=== PATIENT | male | born 2000 | race Caucasian/White ===

== ENCOUNTER 2023-06-09 15:28 | Outpatient (REF) | payer OTHER, SELFPAY ==
[2023-06-09 15:55] LABS: MANUAL DIFF FLAG NO
[2023-06-09 16:06] LABS: Basophils Absolute Auto 0.1 X10*3/uL (0.0-0.2); Basophils Percent Auto 0.7 % (0-2); Eosinophils Absolute Auto 0.1 X10*3/uL (0.0-0.4); Eosinophils Percent Auto 1.2 % (0-4); Hematocrit 45.9 % (42.0-52.0); Hemoglobin 15.5 g/dl (14.0-18.0); Imm Gran Abs Auto 0.04 X10*3/uL (0.00-0.03); Imm Gran Pct Auto 0.4 % (0.0-0.4); Lymphocytes Percent Auto 22.2 % (20-40); Mean Corpuscular HGB Conc 33.8 g/dl (31.0-36.0); Mean Corpuscular Hemoglobin 30.2 pg (27.0-33.0); Mean Corpuscular Volume 89.5 fL (80.0-98.0); Mean Platelet Volume 9.2 fL (9.4-12.4); Monocytes Absolute Auto 0.7 X10*3/uL (0.1-1.2); Monocytes Percent Auto 7.3 % (2-11); Neutrophils Absolute Auto 6.1 x10*3/uL (2.0-8.3); Neutrophils Percent Auto 68.2 % (45-73); Platelet Count 368 X10*3/uL (160-400); Red Blood Count 5.13 X10*6/uL (4.60-5.80); Red Cell Distribution Width 11.9 % (11.0-16.0); White Blood Count 8.9 X10*3/uL (4.8-10.8)
[2023-06-09 17:17] LABS: Anion Gap 13 (12-20); Blood Urea Nitrogen 12 mg/dL (9-16); Calcium 9.8 mg/dL (8.4-10.2); Carbon Dioxide 27 mmol/L (22-29); Chloride 106 mmol/L (96-108); Cholesterol 119 mg/dL (<200); Estimated Glomerular Filt Rate > 60; Glucose Random 88 mg/dL (60-115); HDL Cholesterol 52 mg/dL (>40); LDL Cholesterol Calculated 58 mg/dL (<100); Potassium 3.8 mmol/L (3.3-5.1); Sodium 142 mmol/L (135-145); Triglycerides 47 mg/dL (<150)
== END 2023-06-09 15:29 | disposition home or self-care (01) ==
LOC: HO.LAB 15:28
PROVIDERS: PCP Internal Medicine; Visit Provider Internal Medicine
DX: Z13.6 Encounter for screening for cardiovascular disorders (principal); F90.9 Attention-deficit hyperactivity disorder, unspecified type; L70.9 Acne, unspecified; J30.1 Allergic rhinitis due to pollen
CPT/HCPCS: 36415; 80048; 80061; 85025

== ENCOUNTER 2023-10-04 12:18 | Outpatient (REF) | payer OTHER, SELFPAY ==
[2023-10-04 12:38] LABS: MANUAL DIFF FLAG NO
[2023-10-04 13:35] LABS: Basophils Absolute Auto 0.1 X10*3/uL (0.0-0.2); Basophils Percent Auto 0.7 % (0-2); Eosinophils Absolute Auto 0.1 X10*3/uL (0.0-0.4); Eosinophils Percent Auto 0.8 % (0-4); Hematocrit 42.3 % (42.0-52.0); Hemoglobin 14.3 g/dl (14.0-18.0); Imm Gran Abs Auto 0.03 X10*3/uL (0.00-0.03); Imm Gran Pct Auto 0.4 % (0.0-0.4); Lymphocytes Absolute Auto 1.7 X10*3/uL (1.2-4.9); Lymphocytes Percent Auto 23.4 % (20-40); Mean Corpuscular HGB Conc 33.8 g/dl (31.0-36.0); Mean Corpuscular Hemoglobin 30.2 pg (27.0-33.0); Mean Corpuscular Volume 89.4 fL (80.0-98.0); Mean Platelet Volume 9.3 fL (9.4-12.4); Monocytes Absolute Auto 0.6 X10*3/uL (0.1-1.2); Monocytes Percent Auto 8.6 % (2-11); Neutrophils Absolute Auto 4.8 x10*3/uL (2.0-8.3); Neutrophils Percent Auto 66.1 % (45-73); Platelet Count 383 X10*3/uL (160-400); Red Blood Count 4.73 X10*6/uL (4.60-5.80); Red Cell Distribution Width 11.9 % (11.0-16.0); White Blood Count 7.3 X10*3/uL (4.8-10.8)
[2023-10-04 14:10] LABS: Alanine Aminotransferase 71 U/L (0-40); Albumin Level 4.6 g/dL (3.5-5.0); Alkaline Phosphatase 39 U/L (39-117); Aspartate Amino Transferase 40 U/L (5-37); Bilirubin Direct 0.2 mg/dL (0.0-0.5); Bilirubin Total 0.6 mg/dL (0.0-1.0); Cholesterol 109 mg/dL (<200); HDL Cholesterol 49 mg/dL (>40); LDL Cholesterol Calculated 53 mg/dL (<100); Total Protein 7.2 g/dL (6.5-8.0); Triglycerides 39 mg/dL (<150)
[2023-10-04 14:41] LABS: Reflex LDLD? No
== END 2023-10-04 12:19 | disposition home or self-care (01) ==
LOC: HO.LAB 12:18
PROVIDERS: PCP Internal Medicine; Visit Provider Physician Assistant
DX: L70.0 Acne vulgaris (principal); Z79.899 Other long term (current) drug therapy
CPT/HCPCS: 36415; 80061; 80076; 85025

== ENCOUNTER 2023-12-27 16:57 | Outpatient (REF) | payer OTHER, SELFPAY ==
[2023-12-27 17:07] LABS: MANUAL DIFF FLAG NO
[2023-12-27 17:08] LABS: Basophils Absolute Auto 0.1 X10*3/uL (0.0-0.2); Basophils Percent Auto 0.8 % (0-2); Eosinophils Absolute Auto 0.1 X10*3/uL (0.0-0.4); Eosinophils Percent Auto 0.6 % (0-4); Hematocrit 41.2 % (42.0-52.0); Hemoglobin 14.3 g/dl (14.0-18.0); Imm Gran Abs Auto 0.01 X10*3/uL (0.00-0.03); Imm Gran Pct Auto 0.1 % (0.0-0.4); Lymphocytes Absolute Auto 2.4 X10*3/uL (1.2-4.9); Lymphocytes Percent Auto 30.6 % (20-40); Mean Corpuscular HGB Conc 34.7 g/dl (31.0-36.0); Mean Corpuscular Volume 89.2 fL (80.0-98.0); Mean Platelet Volume 8.6 fL (9.4-12.4); Monocytes Absolute Auto 0.6 X10*3/uL (0.1-1.2); Monocytes Percent Auto 7.3 % (2-11); Neutrophils Absolute Auto 4.8 x10*3/uL (2.0-8.3); Neutrophils Percent Auto 60.6 % (45-73); Platelet Count 360 X10*3/uL (160-400); Red Blood Count 4.62 X10*6/uL (4.60-5.80)
[2023-12-27 17:25] LABS: Alanine Aminotransferase 18 U/L (0-40); Albumin Level 4.5 g/dL (3.5-5.0); Alkaline Phosphatase 45 U/L (39-117); Aspartate Amino Transferase 32 U/L (5-37); Bilirubin Direct 0.3 mg/dL (0.0-0.5); Bilirubin Total 0.6 mg/dL (0.0-1.0); Cholesterol 140 mg/dL (<200); HDL Cholesterol 49 mg/dL (>40); LDL Cholesterol Calculated 79 mg/dL (<100); Triglycerides 60 mg/dL (<150)
== END 2023-12-27 16:58 | disposition home or self-care (01) ==
LOC: HO.LAB 16:57
PROVIDERS: PCP Internal Medicine; Visit Provider Physician Assistant
DX: L70.0 Acne vulgaris (principal); K13.0 Diseases of lips; Z79.899 Other long term (current) drug therapy
CPT/HCPCS: 36415; 80061; 80076; 85025

== ENCOUNTER 2024-09-02 15:00 | Outpatient (AMB) | payer OTHER, SELFPAY ==
--- NOTE | 2024-09-02 15:03 | A.OFFPC_ITS ---
Vital Signs 09/02/24 15:08 Height 5 ft 10.5 in Weight 81.193 kg BMI 25.3 BP 124/56 L Blood Pressure Location Rt brachial Respiration 16 Pulse 65 Temp 97.6 F Temp Source Temporal Artery Scan Pulse Oximetry (%) 97 Oxygen Delivery Method Room Air Intake Visit Reasons: Annual Gold Cutter Required: No Accompanied by: Self / Same As Patient Allergies No Known Allergies Allergy (Verified 09/02/24 15:03) Medication List - Last Reconciled 09/02/24 by YUNIOR Vásquez dextroamphetamine-amphetamine 20 mg ER (Adderall XR) 20 mg PO DAILY HPI HPI Comments History of Present Illness Details 23-year-old male with history of ADHD pr esents to the office today to establish care and for annual physical exam. He currently lives with his brother in [facility] and feels safe there. He did drop out of high school in his sophomore year and is interested in his GED and has information on programs. He currently has a [employer] license and works delivering propane and heating oil. He reports he exercises 6 days per week with heavy lifting. Follows a healthy diet overall. ADHD-he reports some difficulty with distraction while performing tasks but otherwise symptoms are manageable. Does also have anxiety but feels this is manageable as well. Does not follow with Psychiatry and takes Adderall XR as prescribed. He is wondering if a higher doses available Concerns: None Health maintenance: Colonoscopy to start at age 47 ROS: General: No fevers, malaise, unintentional weight loss HEENT: No blurred vision, diplopia. No sore throat, nasal congestion, rhinorrhea, sinus pain, ear pain. No hearing loss Neck - no adenopathy Cardiovascular: No chest pain, palpitations, or leg edema Respiratory: No shortness of breath, wheezing, cough GI: No dysphagia, odynophagia, globus sensation. No abdominal pain, nausea, vomiting, diarrhea, constipation, melena, hematochezia : No dysuria, hematuria, increased urinary frequency, decreased urinary output. No testicular swelling or pain. No penile discharge MSK: No myalgia, back pain, arthralgias Neuro: No headaches, weakness, paresthesias Psych: no depression/anxiery. No AH/VH. No SI/HI Skin: No rashes or lesions EXAM: Constitutional - Awake and Alert, No apparent distress Eyes - PERRLA, EOMI. Anicteric Ears - external ears normal, canals clear, TMs intact and pearly malik with good cone of light Nose- septum midline, nares clear, no sinus tenderness Mouth/throat- mucosa moist, tongue and uvula midline, no erythema/edema or tonsillar adenopathy. Neck-trachea midline, thyroid symmetric without palpable nodules, no adenopathy Cardiovascular - S1S2, RRR, No edema Respiratory - Normal lung expansion, Normal respiratory effort, No respiratory distress, CTA bilaterally Gastrointestinal - NT / ND; +BS; No rebound or guarding - No CVA tenderness Extremities - no calf tenderness bilaterally, no swelling Musculoskeletal - Normal inspection, normal ROM Skin - Warm/Dry, no concerning lesions Neurological - Alert & oriented x3, CN II-XII in tact, 5/5 strength BUE and BLE, 2+ patellar reflexes Psychological - Appropriate affect [facility] Medical History (Updated 09/02/24 @ 15:15 by YUNIOR Vásquez) Acne Adjustment disorder ADHD Surgical History (Updated 09/02/24 @ 15:15 by YUNIOR Vásquez) S/P appendectomy Family History (Updated 09/02/24 @ 15:17 by YUNIOR Vásquez) Maternal Grandmother Family history of breast cancer in female Lung cancer Diabetes Maternal Grandfather CAD (coronary artery disease) Social History (Updated 09/02/24 @ 15:17 by YUNIOR Vásquez) Alcohol intake: current Alcohol intake frequency: a few times a month Patient Tobacco Use Status: Never used Tobacco Questionnaire PHQ-9 Over the last 2 weeks, how often have you been bothered by any of the following problems? 1. Little interest or pleasure in doing things: several days 2. Feeling down, depressed, or hopeless: not at all 3. Trouble falling or staying asleep, or sleeping too much: not at all 4. Feeling tired or having little energy: not at all 5. Poor appetite or overeating: not at all 6. Feeling bad about yourself - or that you are a failure or have let yourself or your family down: several days 7. Trouble concentrating on things, such as reading the newspaper or watching television: more than half the days 8. Moving or speaking so slowly that other people could have noticed. Or the opposite - being so fidgety or restless that you have been moving around a lot more than usual: not at all 9. Thoughts that you would be better off or of hurting yourself in some way: not at all Total score: 4 Depression Screening Interpretation: Negative Depression Screening Done: Yes 68129 - PHQ-9 Billing: Yes Source: Developed by Drs. Ryland Reis, Flor Jaime, Tanner Cano and colleagues, with an educational su from [employer]. Thrive Questionnaire Date Thrive assessed: 09/02/24 I am a: Patient What is your living situation today?: I have a steady place to live Within the past 12 months, did the food you bought not last and you didn't have the money to get more?: Never true Within the past 12 months, did you worry whether your food would run out before you got money to buy more?: Never true Do you have trouble paying for medicines?: No Do you have trouble getting transportation to medical appointments?: No Do you have trouble paying your heating and electricity bill?: No Do you have trouble taking care of your child, family member or friend?: No Do you have trouble with day-to-day activities such as bathing, preparing meals, shopping, managing finances, etc.?: No Are you currently unemployed and looking for a job?: No Are you interested in more education?: No Please select the resources that you would like help with: None THRIVE Score: 0 DARLIN-7 AMB Questionnaire DARLIN-7 Date DARLIN - 7 assessed: 09/02/24 Feeling nervous, anxious, or on edge: 1 = Several days Not being able to stop or control worryin = Several days Worrying too much about different things: 1 = Several days Trouble relaxin = Several days Being so restless that it is hard to sit still: 0 = Not at all Becoming easily annoyed or irritable: 1 = Several days Feeling afraid as if something awful might happen: 0 = Not at all Total DARLIN-7 score (0-4 normal; 5-9 mild; 10-14 moderate; 15-21 severe): 5 Source: Developed by Drs. Ryland Reis, Tanner Luu and colleagues, with an educational su from [employer]. DARLIN-7 Assessment Billing DARLIN-7 Assessment Tool: DARLIN-7 Assessment 25493 Physical exam (Primary Care) Vital Signs: Last Vital Signs Temp 97.6 F 09/02/24 15:08 Pulse 65 09/02/24 15:08 Resp 16 09/02/24 15:08 BP 124/56 L 09/02/24 15:08 Pulse Ox 97 09/02/24 15:08 Oxygen Delivery Method Room Air 09/02/24 15:08 BMI result Body Mass Index 25.3 Tobacco/Smoking Status: Tobacco use Status Patient Tobacco Use Status Never used Tobacco 09/02/24 15:17 PHQ-9: PHQ-9 Score PHQ-9: Total score 4 09/03/24 10:42 Depression Screening Interpretation: Negative Thrive Assessment: Date of Thrive Assessment Date Thrive assessed 09/02/24 09/02/24 15:35 Coding Level of Care Code New Pt Prev Care 18-39yr(74478 Diagnoses Routine medical exam Z00.00 ADHD F90.9 Additional Codes DARLIN-7 Assessment Billing - DARLIN-7 Assessment Tool: DARLIN-7 Assessment 89243 ([id number]) PHQ-9 - 33941 - PHQ-9 Billing: Yes ([id number]) Assessment & Plan Assessment & Plan (1) Routine medical exam: Code(s): Z00.00 - Encounter for general adult medical examination without abnormal findings Plan: 23-year-old male presenting for annual physical exam and found to be in good state of general health. (2) ADHD: Code(s): F90.9 - Attention-deficit hyperactivity disorder, unspecified type Category: Medical Plan: Stable overall. Advised to follow-up with psychiatry for consideration of dose alteration, otherwise continue Adderall 20 mg ER as prescribed Plan Follow-up in 1 year for annual physical exam. Labs to be completed following visit today. Orders: Orders Basic Metabolic Panel 09/02/24 Z00.00 - Encounter for general adult medical examination without abnormal findings Liver Panel 09/02/24 Z00.00 - Encounter for general adult medical examination without abnormal findings Complete Blood Count Auto Diff 09/02/24 Z00.00 - Encounter for general adult medical examination without abnormal findings Referrals Psychiatry Outpatient Consultation Service F90.9 - Attention-deficit hyperactivity disorder, unspecified type Medications: Discontinued dextroamphetamine-amphetamine 5 mg ER (Adderall XR) Discontinued Reason: Patient no longer taking 5 mg PO DAILY 60 caps 0RF F98.8 - Other specified behavioral and emotional disorders with onset usually occurring in childhood and adolescence Patient Instructions: [email or web address]
[2024-09-02 15:08] VITALS: BP 124/56; PULSE 65; RESP 16; TEMP 36.4; O2SAT 97; BMI 25.3
== END 2024-09-02 15:32 | disposition home or self-care (01) ==
LOC: HO.HMCHD 15:01
PROVIDERS: PCP Internal Medicine; Visit Provider Physician Assistant
DX: Z00.00 Encounter for general adult medical examination without abnormal findings (principal); F90.9 Attention-deficit hyperactivity disorder, unspecified type

== ENCOUNTER → 2024-09-02 15:00 | Outpatient (BNVA) | payer OTHER, SELFPAY | PROVIDERS: PCP Internal Medicine; Visit Provider Physician Assistant | DX: Z00.00 Encounter for general adult medical examination without abnormal findings (principal); Z13.31 Encounter for screening for depression; Z13.30 Encounter for screening examination for mental health and behavioral disorders, unspecified; F90.9 Attention-deficit hyperactivity disorder, unspecified type | CPT/HCPCS: 96127 ==